=== PATIENT | female | born 1965 | race Hispanic/Latino ===

== ENCOUNTER 2019-03-26 22:41 | Inpatient (IN) | payer OTHER ==
[~2019-03-26] VITALS: Ht 152.4 cm; Wt 90.0 kg
[~2019-03-26 22:41] MED LIST: ATROPINE SULFATE 0.1 MG/ML 10 ML SYG IVP ONE; EPINEPHRINE 0.1 MG/ML 10 ML SYG IVP ONE; ETOMIDATE 2 MG/ML 10 ML VIAL IVP ONE; SODIUM BICARB 8.4% 50ML SYRINGE IVP ONE
[2019-03-26 23:07] LABS: BASOPHILS % (AUTO) 1.4 % (0.0-5.0); EOSINOPHILS % (AUTO) 1.7 % (0.0-8.0); HEMATOCRIT 46.8 % (36-48); LYMPHOCYTES % (AUTO) 45.6 % (21.0-51.0); MEAN CORPUSCULAR HEMOGLOBIN 28.6 pg (27.0-33.0); MEAN CORPUSCULAR HGB CONC 32.1 g/dL (32.0-36.0); MEAN CORPUSCULAR VOLUME 89.1 fL (79-99); MONOCYTES % (AUTO) 4.6 % (3.0-13.0); NEUTROPHILS % (AUTO) 46.7 % (40.0-77.0); PLATELET COUNT (AUTO) 229 K/uL (130-400); RED BLOOD CELL COUNT(AUTO) 5.25 MIL/uL (4.00-5.50); RED CELL DISTRIBUTION WIDTH 14.3 % (11.0-15.5); WHITE BLOOD COUNT (AUTO) 8.7 K/uL (4.8-10.8)
[2019-03-26] MEDS ORDERED: SODIUM CHLORIDE 0.9% 250 ML IV ONE (23:10)
[2019-03-26] MEDS ORDERED: NOREPINEPHRINE BITARTRATE 1 MG/1 ML ML IV ONE (23:10)
[2019-03-26 23:13] LABS: ABG HCO3 15.4 mmol/L (21.0-28.0); ABG OXYGEN SATURATION 96.7 % (95.0-99.0); ABG PCO2 94 mmHg (32-45)
[2019-03-26 23:16] LABS: INR 0.98 (0.85-1.15); PROTHROMBIN TIME 10.3 SEC (9.6-11.6)
[2019-03-26 23:21] LABS: POTASSIUM 3.8 mmol/L (3.5-5.1)
[2019-03-26 23:27] LABS: ALBUMIN 3.2 g/dL (3.5-5.0); BILIRUBIN,TOTAL 0.2 mg/dL (0.2-1.0); TOTAL PROTEIN, SERUM 8.1 g/dL (6.0-8.3)
[2019-03-26] MEDS ORDERED: CLOPIDOGREL BISULFATE 300 MG TAB ONE (23:27)
[2019-03-26] MEDS ORDERED: ASPIRIN 325 MG TABLET ONE (23:27)
[2019-03-26] MEDS ORDERED: HEPARIN SODIUM 5000UNIT/ML 1ML VIAL ONE (23:34)
[2019-03-26 23:41] LABS: APPEARANCE,URINE Clear (CLEAR); BILIRUBIN,URINE Negative (NEGATIVE); COLOR,URINE Yellow (YELLOW); GLUCOSE, URINE (UA) >=1000 mg/dL (NEGATIVE); KETONES,URINE Negative (NEGATIVE); LEUKOCYTE ESTERASE ,URINE Negative (NEGATIVE); NITRATE,URINE Negative (NEGATIVE); OCCULT BLOOD,URINE Moderate (NEGATIVE); PROTEIN,URINE >=1000 mg/dL (NEGATIVE); UROBILINOGEN,URINE 0.2 mg/dL (0.2-1.0)
[2019-03-26 23:43] LABS: HCG,QUAL RESULT NEGATIVE (NEGATIVE)
[2019-03-26] MEDS ORDERED: ONDANSETRON HCL 4 MG/2 ML VIAL IV PRN (23:45)
[2019-03-26] MEDS ORDERED: ACETAMINOPHEN 325 MG TAB PO PRN ×2 (23:45)
[2019-03-26 23:48] LABS: ABG BASE EXCESS -14.5 mmol/L (-2.0-3.0); ABG HCO3 16.2 mmol/L (21.0-28.0); ABG OXYGEN SATURATION 93.3 % (95.0-99.0); ABG PCO2 59 mmHg (32-45)
[2019-03-26 23:49] LABS: AMPHET/METH SCREEN,URINE NEGATIVE (NEGATIVE); BARBITURATE SCREEN, URINE NEGATIVE (NEGATIVE); BENZODIAZEPINES SCREEN,URINE NEGATIVE (NEGATIVE); CANNABINOID SCREEN,URINE NEGATIVE (NEGATIVE); COCAINE SCREEN,URINE NEGATIVE (NEGATIVE); OPIATE SCREEN,URINE NEGATIVE (NEGATIVE); PHENCYCLIDINE SCREEN,URINE NEGATIVE (NEGATIVE)
[2019-03-26 23:56] LABS: BACTERIA,URINE None Seen /HPF (None Seen); SQUAMOUS EPITHELIAL CELL,UR Rare /HPF (0-2); WBC,URINE None Seen /HPF (0-1); YEAST,URINE BUDDING None Seen /HPF (None Seen)
[2019-03-26] MEDS ORDERED: SODIUM BICARB 50MEQ 50ML VIAL ONE (23:56)
[2019-03-26] MEDS ORDERED: INSULIN HUMULIN R 100 UNIT/ML 3ML ONE (23:57)
[2019-03-26] MEDS ORDERED: NITROGLYCERIN 5 MG/ML 10 ML VIAL IV ONE (23:57)
[2019-03-26] MEDS ORDERED: BIVALIRUDIN 250 MG/VIAL IV ONE (23:57)
[2019-03-26] MEDS ORDERED: IOHEXOL 350 MG/ML 100ML INFUS..BTL IV ONE (23:57)
[2019-03-26] MEDS ORDERED: IOHEXOL-350 50ML VIAL IV ONE (23:57)
[2019-03-26] MEDS ORDERED: LIDOCAINE HCL 2% 20ML ONE (23:58)
[2019-03-27] VITALS (68 sets, daily range): BP systolic 0–233; BP diastolic 0–141
[2019-03-27] MEDS ORDERED: ATROPINE SULFATE 0.1 MG/ML 10 ML SYG IVP ONE ×2 (00:20→17:44)
[2019-03-27] MEDS ORDERED: BIVALIRUDIN 250 MG/VIAL IV ONE (00:21)
[2019-03-27] MEDS ORDERED: FUROSEMIDE 10 MG/ML 4ML VIAL ONE (00:31)
[2019-03-27 00:47] LABS: ABG BASE EXCESS -5.4 mmol/L (-2.0-3.0); ABG HCO3 21.4 mmol/L (21.0-28.0); ABG OXYGEN SATURATION 99.2 % (95.0-99.0); ABG PCO2 47 mmHg (32-45)
[2019-03-27] MEDS ORDERED: MORPHINE SULFATE 5 MG/ML VIAL ONE (00:55)
[2019-03-27] MEDS ORDERED: LABETALOL 20 MG/4 ML DISP.SYRIN IV ONE (00:59)
[2019-03-27] MEDS ORDERED: FUROSEMIDE 10 MG/ML 4ML VIAL IV SCH (01:15)
[2019-03-27] MEDS ORDERED: PHARMACY COMMUNICATION MISC SCH ×2 (01:15→11:30)
--- NOTE | 2019-03-27 01:15 | NUR ---
NEW ADMIT 53 Y/O FEMALE ADMITTED TO ROOM 215. PT UNRESPONSIVE, PUPILS FIXED AND DILATED. NO RESPONSE TO PAINFUL STIMULI, (-) COUGH REFLEX. SEE FLOW SHEET FOR ASSESSMENT,AND NURSING DATA BASE FOR MORE INFORMATION.
--- NOTE | 2019-03-27 02:00 | NUR ---
COOLING BLANKET COOLING BLANKET APPLIED
--- NOTE | 2019-03-27 02:15 | NUR ---
BENCHMARK BENCHMARK MADE AWARE OF CONSULT, SEE ORDERS
--- NOTE | 2019-03-27 03:00 | NUR ---
RADIOLOGY PT Taken to ct via bed bagged with RT and monitor at bedside.
[2019-03-27] MEDS: NITROGLYCERIN 50 MG/D5% WATER 250 BOT IV PRN ×3 (03:46→21:25)
[2019-03-27 05:48] LABS: BASOPHILS % (AUTO) 0.2 % (0.0-5.0); EOSINOPHILS % (AUTO) 0.1 % (0.0-8.0); HEMATOCRIT 45.3 % (36-48); LYMPHOCYTES % (AUTO) 7.2 % (21.0-51.0); MEAN CORPUSCULAR HEMOGLOBIN 28.4 pg (27.0-33.0); MONOCYTES % (AUTO) 4.8 % (3.0-13.0); NEUTROPHILS % (AUTO) 87.7 % (40.0-77.0); PLATELET COUNT (AUTO) 221 K/uL (130-400); RED BLOOD CELL COUNT(AUTO) 5.27 MIL/uL (4.00-5.50); RED CELL DISTRIBUTION WIDTH 14.1 % (11.0-15.5); WHITE BLOOD COUNT (AUTO) 17.5 K/uL (4.8-10.8)
[2019-03-27 05:59] LABS: ALBUMIN 3.3 g/dL (3.5-5.0); BILIRUBIN,TOTAL 0.3 mg/dL (0.2-1.0); CREATININE 1.2 mg/dL (0.5-1.5); POTASSIUM 3.5 mmol/L (3.5-5.1); TOTAL PROTEIN, SERUM 7.8 g/dL (6.0-8.3)
[2019-03-27] MEDS ORDERED: DILTIAZEM 125MG+100 ML NS 125 ML IV PRN (06:45)
[2019-03-27] MEDS ORDERED: INSULIN HUMULIN R 100 UNIT/ML 3ML SQ SCH ×2 (07:30→12:00)
--- NOTE | 2019-03-27 08:54 | NUR ---
Sepsis Notification Rainer BUCK/ Karin BUCK notified or aware of possible sepsis. Addendum: 03/27/19 at 0857 by HEIDE MCCALLUM RN Karin BUCK rounded at bedside given report of patients event. No orders received.
[2019-03-27] MEDS: ENOXAPARIN SODIUM 40 MG/0.4 ML SYRINGE SQ SCH (09:00)
[2019-03-27] MEDS: FAMOTIDINE/PF 20 MG/2 ML VIAL IV SCH ×2 (09:09→20:51)
[2019-03-27] MEDS ORDERED: [UNRECOGNIZED DRUG - OTHER] PO (10:11)
[2019-03-27] MEDS ORDERED: [UNRECOGNIZED DRUG - OTHER] PO (10:11)
[2019-03-27] MEDS ORDERED: HYDR25TA PO (10:11)
[2019-03-27] MEDS ORDERED: GLUCOVANCE PO (10:11)
[2019-03-27] MEDS ORDERED: MONT10TA24 PO (10:11)
[2019-03-27] MEDS ORDERED: [UNRECOGNIZED DRUG - OTHER] PO (10:11)
[2019-03-27] MEDS ORDERED: PANT20TA12 PO (10:11)
[2019-03-27] MEDS ORDERED: [UNRECOGNIZED DRUG - OTHER] PO (10:11)
[2019-03-27] MEDS ORDERED: COMPOUND IV MISC 1 EACH IVSOLN MISC PRN (11:45)
[2019-03-27] MEDS: AMLODIPINE BESYLATE 2.5 MG TAB PO SCH ×2 (12:00→20:50)
[2019-03-27] MEDS: LABETALOL HCL 100 MG TABLET PO SCH ×2 (12:01→20:52)
[2019-03-27] MEDS: BUMETANIDE 0.25 MG/ML 10 ML 40 ML IV SCH ×2 (12:03→20:50)
--- NOTE | 2019-03-27 12:06 | NUR ---
Lovenox order Dr. Mcginnis rounded at 1050 updated on patients status. He ordered amlodipine, labetalol, and a Bumex drip as entered in orders. Instructed for Lovenox subq injection to be held due to possible a-line insertion or femoral sheath removal as per critical care order.
[2019-03-27] MEDS: ENOXAPARIN SODIUM 100 MG/1 ML SQ SCH ×2 (13:45→20:55)
[2019-03-27] MEDS: INSULIN REGULAR, HUMAN 3ML 100 UNIT in SODIUM CHLORIDE 0.9% 99 ML IV PRN ×4 (13:49→20:57)
[2019-03-27] MEDS: ZOSYN 3.375GM+NS 50ML 50 ML IV SCH ×2 (14:40→20:51)
[2019-03-27] MEDS: HYDRALAZINE HCL 25 MG TABLET NG SCH ×2 (14:44→20:53)
--- NOTE | 2019-03-27 15:45 | NUR ---
D/C PLAN CM spoke to pts daughter named Minnie regarding d/c planning. States pt lives with spouse. Pt was previously independent and denies having any DME. Plan to home for now depending on progress. Pt is currently vented. Daughter asked CM about pts sister visiting from [place]. CM to refer case to licensed social worker for a possible contact for family. CM to f/u. Addendum: 03/27/19 at 1549 by RODRIGO CUADRA CM Amended: Links added.
--- NOTE | 2019-03-27 19:00 | NUR ---
ASSESSMENT PT INTUBATED, COOLING BLANKET INTACT. IV FLUIDS INFUSING. PT REMAINS UNRESPONSIVE. FAMILY AT BEDSIDE. FOR MORE INFORMATION SEE ASSESSMENT. BEDSIDE MONITOR REVIEWED, WHITE BOARD UP-DATED AND CALLBELL WITHIN REACH.
[2019-03-28] VITALS (53 sets, daily range): BP systolic 117–184; BP diastolic 53–87
--- NOTE | 2019-03-28 02:00 | NUR ---
COOLING BLANKET COOLING BLANKET COMPLETED
--- NOTE | 2019-03-28 03:00 | NUR ---
ASSESSMENT PT REMAINS INTUBATED, IV FLUIDS INFUSING. PT REMAINS UNRESPONSIVE, PUPILS FIXED AND DILATED, (-) COUGH (-) RESPONSE TO PAIN. FAMILY AT BEDSIDE. FOR MORE INFORMATION SEE ASSESSMENT. CALLBELL WITHIN REACH.
[2019-03-28] MEDS: ZOSYN 3.375GM+NS 50ML 50 ML IV SCH ×3 (04:12→21:08)
[2019-03-28 04:29] LABS: ALBUMIN 2.9 g/dL (3.5-5.0); BILIRUBIN,TOTAL 0.5 mg/dL (0.2-1.0); MAGNESIUM 1.5 mg/dL (1.80-2.40); PHOSPHORUS 2.4 mg/dL (2.5-4.9); TOTAL PROTEIN, SERUM 7.7 g/dL (6.0-8.3)
[2019-03-28 04:41] LABS: BASOPHILS % (AUTO) 1.1 % (0.0-5.0); EOSINOPHILS % (AUTO) 0.1 % (0.0-8.0); MEAN CORPUSCULAR HEMOGLOBIN 27.8 pg (27.0-33.0); MEAN CORPUSCULAR HGB CONC 32.6 g/dL (32.0-36.0); MEAN CORPUSCULAR VOLUME 85.3 fL (79-99); NEUTROPHILS % (AUTO) 88.8 % (40.0-77.0); NUCLEATED RED BLOOD CELLS 0.1 % (0.0-0.19); PLATELET COUNT (AUTO) 190 K/uL (130-400); RED BLOOD CELL COUNT(AUTO) 5.04 MIL/uL (4.00-5.50); RED CELL DISTRIBUTION WIDTH 13.7 % (11.0-15.5); WHITE BLOOD COUNT (AUTO) 17.1 K/uL (4.8-10.8)
[2019-03-28 05:00] LABS: POTASSIUM 2.9 mmol/L (3.5-5.1)
[2019-03-28] MEDS ORDERED: MAGNESIUM 2GM PREMIX 50ML 50 ML IV PRN (07:15)
[2019-03-28] MEDS: POTASSIUM CHLORIDE 20MEQ/100ML 100 ML IV PRN ×2 (07:52→11:23)
--- NOTE | 2019-03-28 07:54 | NUR ---
Electrolyte replacement Magnesium 1.5, 1 dose given as per protocol Potassium 2.9, 1 dose given pending second dose once first in completed as per protocol Addendum: 03/28/19 at 1123 by HEIDE MCCALLUM RN 2nd dose of potassium given as per protocol at 1123
[2019-03-28] MEDS: ENOXAPARIN SODIUM 40 MG/0.4 ML SYRINGE SQ SCH (09:00)
[2019-03-28] MEDS: HYDRALAZINE HCL 25 MG TABLET NG SCH ×3 (09:24→21:13)
[2019-03-28] MEDS: LABETALOL HCL 100 MG TABLET PO SCH ×2 (09:24→21:10)
[2019-03-28] MEDS: FAMOTIDINE/PF 20 MG/2 ML VIAL IV SCH ×2 (09:24→21:11)
[2019-03-28] MEDS: AMLODIPINE BESYLATE 2.5 MG TAB PO SCH (09:25)
[2019-03-28] MEDS: ENOXAPARIN SODIUM 100 MG/1 ML SQ SCH ×2 (09:25→20:00)
[2019-03-28] MEDS: ASPIRIN 81MG TAB.CHEW NG SCH (09:25)
[2019-03-28 10:16] LABS: ABG BASE EXCESS 4.7 mmol/L (-2.0-3.0); ABG HCO3 26.4 mmol/L (21.0-28.0); ABG OXYGEN SATURATION 98.1 % (95.0-99.0); ABG PCO2 31 mmHg (32-45)
--- NOTE | 2019-03-28 11:33 | NUR ---
RD NOTIFICATION - TRIGGER Pt admitted for Cardiac Arrest. Pt s/p Respiratory failure, Intubation, mechanical ventilation. Pt also with Small bowel loops as per EMR, NGT to suction. Recommend to continue NPO at this time, RD to continue to monitor. Pt LBM 03/27/19. Pt monitored labs: Glu 179, Lactic Acid 2.9, Na 147, K 2.9, BUN 31, Glu 162, P 2.4, Mg 1.50, AST 166, Alb 2.9. RD to continue to monitor. Please notify RD as additional nutrition concerns arise. Thank you. Addendum: 03/28/19 at [address] RD Amended: Links added.
[2019-03-28] MEDS ORDERED: INSULIN GLARGINE 100 UNITS/ML 10 ML VIAL SQ SCH (12:15)
[2019-03-28] MEDS ORDERED: 1/2 NORMAL SALINE 1,000 ML IV SCH (13:30)
[2019-03-28] MEDS: LISINOPRIL 10 MG TABLET PO SCH (13:37)
[2019-03-28] MEDS ORDERED: IOHEXOL 350 MG/ML 100ML INFUS..BTL IV ONE (15:16)
--- NOTE | 2019-03-28 16:00 | NUR ---
CT SCAN Patient transported to CT scan at 1530 and returned back to the room at 1600. RN and RT transported the patient, scan went well. Addendum: 03/28/19 at 1835 by HEIDE MCCALLUM RN Dr. Casey notified by phone about the CT results, Ordered for lovenox dose to be adjusted to 40mg daily
[2019-03-28] MEDS ORDERED: INSULIN HUMULIN R 100 UNIT/ML 3ML SQ SCH (18:00)
[2019-03-28] MEDS: INSULIN HUMULIN R 100 UNIT/ML 3ML SQ SCH (18:27)
--- NOTE | 2019-03-28 19:30 | NUR ---
ASSESSMENT PT INTUBATED, IV FLUIDS INFUSING. PT REMAINS UNRESPONSIVE. FAMILY AT BEDSIDE. FOR MORE INFORMATION SEE ASSESSMENT, SEE FLOW SHEET. BEDSIDE MONITOR REVIEWED, WHITE BOARD UP-DATED AND CALLBELL WITHIN REACH.
[2019-03-28] MEDS ORDERED: AMLODIPINE BESYLATE 2.5 MG TAB PO SCH (21:00)
[2019-03-28] MEDS: NITROGLYCERIN 50 MG/D5% WATER 250 BOT IV PRN (21:08)
[2019-03-28] MEDS: AMLODIPINE BESYLATE 5 MG TAB PO SCH (21:10)
[2019-03-29] VITALS (44 sets, daily range): BP systolic 110–146; BP diastolic 54–96
[2019-03-29] MEDS: INSULIN HUMULIN R 100 UNIT/ML 3ML SQ SCH ×4 (00:51→17:39)
[2019-03-29 03:53] LABS: BASOPHILS % (AUTO) 0.1 % (0.0-5.0); EOSINOPHILS % (AUTO) 0.1 % (0.0-8.0); HEMATOCRIT 39.8 % (36-48); LYMPHOCYTES % (AUTO) 8.8 % (21.0-51.0); MEAN CORPUSCULAR HEMOGLOBIN 28.2 pg (27.0-33.0); MEAN CORPUSCULAR HGB CONC 32.8 g/dL (32.0-36.0); MEAN CORPUSCULAR VOLUME 85.8 fL (79-99); MONOCYTES % (AUTO) 8.5 % (3.0-13.0); NEUTROPHILS % (AUTO) 82.5 % (40.0-77.0); PLATELET COUNT (AUTO) 192 K/uL (130-400); RED BLOOD CELL COUNT(AUTO) 4.64 MIL/uL (4.00-5.50); RED CELL DISTRIBUTION WIDTH 14.2 % (11.0-15.5)
[2019-03-29 04:13] LABS: ALBUMIN 2.5 g/dL (3.5-5.0); BILIRUBIN,TOTAL 0.4 mg/dL (0.2-1.0); CREATININE 1.2 mg/dL (0.5-1.5); MAGNESIUM 3.4 mg/dL (1.80-2.40); PHOSPHORUS 5.2 mg/dL (2.5-4.9); POTASSIUM 3.1 mmol/L (3.5-5.1); TOTAL PROTEIN, SERUM 6.9 g/dL (6.0-8.3)
[2019-03-29] MEDS: ZOSYN 3.375GM+NS 50ML 50 ML IV SCH ×3 (05:39→21:01)
--- NOTE | 2019-03-29 07:35 | NUR ---
DR. GASTELUM WAS PAGED AND ADVISED OF CONSULT FOR PATIENT.
[2019-03-29] MEDS: LISINOPRIL 10 MG TABLET PO SCH (08:06)
[2019-03-29] MEDS: AMLODIPINE BESYLATE 5 MG TAB PO SCH ×2 (08:06→21:02)
[2019-03-29] MEDS: ENOXAPARIN SODIUM 40 MG/0.4 ML SYRINGE SQ SCH (08:07)
[2019-03-29] MEDS: POTASSIUM CHLORIDE 20MEQ/100ML 100 ML IV PRN (08:08)
[2019-03-29] MEDS: ASPIRIN 81MG TAB.CHEW NG SCH (08:08)
[2019-03-29] MEDS: FAMOTIDINE/PF 20 MG/2 ML VIAL IV SCH ×2 (08:08→21:01)
[2019-03-29] MEDS: LABETALOL HCL 100 MG TABLET PO SCH ×2 (08:09→21:02)
[2019-03-29] MEDS: INSULIN GLARGINE 100 UNITS/ML 10 ML VIAL SQ SCH (08:32)
[2019-03-29] MEDS: HYDRALAZINE HCL 25 MG TABLET NG SCH ×3 (08:52→21:02)
--- NOTE | 2019-03-29 10:30 | NUR ---
DR. GASTELUM HERE AND SPOKE WITH AND DAUGHTER AND ADVISED THEM OF THE CT SCAN REPORT AND HIS NEUROLOGICAL ASSESSMENT AND THE POOR PROGNOSIS. FAMILY MEMBERS WERE ALLOWED TO ASK QUESTIONS AND DR. GASTELUM ANSWERED THEIR QUESTIONS TO THEIR SATISFACTION.
--- NOTE | 2019-03-29 11:35 | NUR ---
[facility] WAS CALLED AND NOTIFIED OF PT'S PRESENT STATUS. SPOKE WITH KESHA FAUSTIN AND REFERENCE NUMBER OBTAINED.
[2019-03-29] MEDS ORDERED: MAGNESIUM 2GM PREMIX 50ML 50 ML IV PRN (14:00)
[2019-03-29] MEDS ORDERED: POTASSIUM CHLORIDE 20MEQ/100ML 100 ML IV PRN (14:00)
[2019-03-29] MEDS: SODIUM CHLORIDE 0.9% 1000ML 1,000 ML IV SCH (14:00)
--- NOTE | 2019-03-29 15:04 | NUR ---
DC PLAN READ DR. GASTELUM NOTES. PATIENT APPEARS TO BE BRAIN . LET FIREBRICK LAYER KNOW TO START SPEAKING TO FAMILY REGARDING WITHDRAWL PROCESS. Addendum: 03/29/19 at 1506 by SCOT SHELLEY RN CM Amended: Links added.
--- NOTE | 2019-03-29 15:30 | NUR ---
DR. MCCULLOUGH WAS HERE AND SPOKE WITH PATIENT'S FAMILY MEMBERS AND ADVISED THEM OF THE PROGNOSIS NOT BEING A GOOD PROGNOSIS. DAUGHTER STILL HOPEFUL FOR A MIRACLE.
--- NOTE | 2019-03-29 20:00 | NUR ---
ASSESSMENT REMAINS ON VENT WITH ORDERED SETTINGS. NO SEDATION. ASSESSMENT COMPLETED SEE FLOW SHEET. Addendum: 03/29/19 at 2020 by CUBA WARD RN RN Amended: Links added.
[2019-03-30] VITALS (24 sets, daily range): BP systolic 108–147; BP diastolic 48–74
[2019-03-30] MEDS: INSULIN HUMULIN R 100 UNIT/ML 3ML SQ SCH ×3 (00:44→12:00)
[2019-03-30 03:37] LABS: BASOPHILS % (AUTO) 0.1 % (0.0-5.0); HEMATOCRIT 36.4 % (36-48); LYMPHOCYTES % (AUTO) 10.9 % (21.0-51.0); MEAN CORPUSCULAR HEMOGLOBIN 28.4 pg (27.0-33.0); MEAN CORPUSCULAR HGB CONC 32.8 g/dL (32.0-36.0); MEAN CORPUSCULAR VOLUME 86.5 fL (79-99); PLATELET COUNT (AUTO) 163 K/uL (130-400); RED BLOOD CELL COUNT(AUTO) 4.21 MIL/uL (4.00-5.50); RED CELL DISTRIBUTION WIDTH 14.2 % (11.0-15.5); WHITE BLOOD COUNT (AUTO) 10.9 K/uL (4.8-10.8)
[2019-03-30 03:59] LABS: CREATININE 1.4 mg/dL (0.5-1.5); MAGNESIUM 2.1 mg/dL (1.80-2.40)
[2019-03-30 04:02] LABS: POTASSIUM 2.6 mmol/L (3.5-5.1)
[2019-03-30] MEDS: POTASSIUM CHLORIDE 20MEQ/100ML 100 ML IV PRN ×4 (04:09→22:03)
[2019-03-30] MEDS: LIDOCAINE HCL-MPF 1% 2ML VIAL IV PRN ×2 (04:09→19:32)
[2019-03-30] MEDS: ZOSYN 3.375GM+NS 50ML 50 ML IV SCH ×3 (04:59→21:06)
[2019-03-30] MEDS: ENOXAPARIN SODIUM 40 MG/0.4 ML SYRINGE SQ SCH (08:22)
[2019-03-30] MEDS: LABETALOL HCL 100 MG TABLET PO SCH ×2 (08:22→21:06)
[2019-03-30] MEDS: HYDRALAZINE HCL 25 MG TABLET NG SCH ×3 (08:23→21:18)
[2019-03-30] MEDS: FAMOTIDINE/PF 20 MG/2 ML VIAL IV SCH ×2 (08:23→21:06)
[2019-03-30] MEDS: ASPIRIN 81MG TAB.CHEW NG SCH (08:24)
[2019-03-30] MEDS: AMLODIPINE BESYLATE 5 MG TAB PO SCH ×2 (08:24→21:06)
[2019-03-30] MEDS: INSULIN GLARGINE 100 UNITS/ML 10 ML VIAL SQ SCH (08:26)
[2019-03-30] MEDS: LISINOPRIL 10 MG TABLET PO SCH (08:27)
--- NOTE | 2019-03-30 09:06 | NUR ---
EMOTIONAL SUPPORT Damion met with pt's son at bedside. Per son, family waiting to talk to Dr Metcalf this am for status on pt. Son reports that family was spoke to by Dr Metcalf and Dr Gates and news was not good, but Dr Figueroa spoke to them in afternoon and now they have hope that brain is receiving blood flow and pt may recover. Family has strong marcell that God will heal pt. Daughter arrived and was requesting letter for family to come from [place]. Sw referred daughter to MD office for letter.
[2019-03-30] MEDS: SODIUM CHLORIDE 0.9% 1000ML 1,000 ML IV SCH ×2 (10:00→23:38)
--- NOTE | 2019-03-30 14:24 | NUR ---
RD FOLLOW UP Pt NPO >3 days, NGT to suction; Recommend Altered Means Nutrition. TPN Recommendation: Clinimix 5/15 @75mls/hr. Also recommend 20% Intralipid infusion MWF. Recommend Lipid lab draw, weekly. TPN recommendations placed in Pt chart. Pt with Anoxic encephalopathy, CHF, Pulmonary edema as per EMR. Pending Neuro Eval as per EMR. PT LBM 03/27/19. Pt monitored labs: Na 150, K 2.6, BUN 41, GFR 42, Glu 251, Ca 8.4, Alb 2.5. RD to continue to monitor. Please notify RD as additional nutrition concerns arise. Thank you. Addendum: 03/30/19 at [address] Amended: Links added.
[2019-03-30 19:16] LABS: CREATININE 1.3 mg/dL (0.5-1.5)
[2019-03-30 19:24] LABS: POTASSIUM 2.6 mmol/L (3.5-5.1)
--- NOTE | 2019-03-30 20:06 | NUR ---
ASSESSMENT REMAINS ON VENT WITH ORDERED SETTINGS AND NO SEDATION. ASSESSMENT COMPLETED SEE FLOW SHEET. Addendum: 03/30/19 at 2007 by CUBA WARD RN RN Amended: Links added.
--- NOTE | 2019-03-30 22:29 | NUR ---
NEUROSURGERY SPINE PHYSICIAN VISIT VISITED WITH DAUGHTER AT BEDSIDE.
[2019-03-31] VITALS (27 sets, daily range): BP systolic 84–144; BP diastolic 40–73
[2019-03-31] MEDS: INSULIN HUMULIN R 100 UNIT/ML 3ML SQ SCH ×4 (01:12→18:10)
[2019-03-31] MEDS: ZOSYN 3.375GM+NS 50ML 50 ML IV SCH ×3 (05:05→20:24)
--- NOTE | 2019-03-31 08:00 | NUR ---
PATIENT RECEIVED IN BED, NO CHANGE IN CONDITION. PATIENT REMAINS ON VENTILATOR ON THE FOLLOWING SETTINGS: AC/14/500/5/50%; 7.0 ETT 23 AT THE LIP. PT WITH NO GAG REFLEX NOTED, PUPILS FIXED AND DILATED, NO PAINFUL STIMULI NOTED. HOB ELEVATED, F/C NOTED, DRAINING TO GRAVITY. FAMILY IS AT BEDSIDE. TELE WITH SB 50s. ASSESSMENT DOCUMENTED. WILL CONT TO MONITOR CLOSELY. PATIENT REMAINS FULL CODE STATUS.
[2019-03-31] MEDS: POTASSIUM CHLORIDE 20MEQ/100ML 100 ML IV PRN ×2 (08:28→10:13)
[2019-03-31] MEDS: ENOXAPARIN SODIUM 40 MG/0.4 ML SYRINGE SQ SCH (09:05)
[2019-03-31] MEDS: FAMOTIDINE/PF 20 MG/2 ML VIAL IV SCH ×2 (09:05→20:24)
[2019-03-31] MEDS: ASPIRIN 81MG TAB.CHEW NG SCH (09:05)
[2019-03-31] MEDS: INSULIN GLARGINE 100 UNITS/ML 10 ML VIAL SQ SCH (09:06)
[2019-03-31] MEDS: LISINOPRIL 10 MG TABLET PO SCH (09:09)
[2019-03-31] MEDS: HYDRALAZINE HCL 25 MG TABLET NG SCH ×3 (09:10→20:16)
[2019-03-31] MEDS: LABETALOL HCL 100 MG TABLET PO SCH ×2 (09:10→20:17)
[2019-03-31] MEDS: AMLODIPINE BESYLATE 5 MG TAB PO SCH ×2 (09:10→20:17)
--- NOTE | 2019-03-31 10:51 | NUR ---
PATIENT VISITED BY .
--- NOTE | 2019-03-31 11:45 | NUR ---
MD ROUNDS DR. SMITH ON TO SEE PATIENT. MD SPOKE WITH FAMILY AND INFORMED THEM OF POOR PROGNOSIS. NEW ORDERS FOR BRAIN FLOW STUDY TO BE DONE. WILL CONT TO MONITOR.
--- NOTE | 2019-03-31 11:58 | NUR ---
ROUNDS DR. MOORE IN TO SEE PATIENT. SPOKE WITH DR. SMITH AND THEN SPOKE WITH FAMILY. PATIENT IS TO HAVE A BRAIN FLOW STUDY.
[2019-03-31 14:47] LABS: CREATININE 2.6 mg/dL (0.5-1.5); MAGNESIUM 2.3 mg/dL (1.80-2.40); POTASSIUM 4.2 mmol/L (3.5-5.1)
--- NOTE | 2019-03-31 15:55 | NUR ---
BRAIN FLOW TEST COMPLETE WITH RESULTS AVAILABLE. DR. MOORE, DR. SMITH AND DR. GASTELUM ALL MADE AWARE OF RESULTS. I INFORMED DR. MOORE OF [facility] COMING IN TODAY.
--- NOTE | 2019-03-31 18:25 | NUR ---
SPOKE WITH DR. MOORE REGARDING LOW BP,84/40, HR 55. I ALSO INFORMED HIM RE[facility] IS HERE. NEW ORDERS RECEIVED FOR LEVOPHED KEEP MAP >65. ORDERS TO BE CARRIED OUT.
[2019-03-31] MEDS: NOREPINEPHRINE 4MG/NS 250ML 250 ML IV SCH (18:44)
--- NOTE | 2019-03-31 20:20 | NUR ---
DR. TERESA MOORE AT BEDSIDE HAD FAMILY STEP OUT FOR EXAM.
--- NOTE | 2019-03-31 20:50 | NUR ---
DR. TERESA MOORE CALLED MESSAGE LEFT THAT ALL SUPPLIES ARE AT BEDSIDE WAITING FOR CALL BACK.
--- NOTE | 2019-03-31 21:12 | NUR ---
DR. MOORE MESSAGE SENT TO DR. MOORE AGAIN AT THIS TIME.
--- NOTE | 2019-03-31 21:40 | NUR ---
FAMILY NO RESPONSE FROM DR. MOORE PT AND DAUGHTER LEFT HOME. PTS SISTER AT BEDSIDE
--- NOTE | 2019-03-31 22:10 | NUR ---
RE[facility] STALEY TEAM LEFT AT THIS TIME.
[2019-04-01] VITALS (33 sets, daily range): BP systolic 85–122; BP diastolic 47–67
[2019-04-01] MEDS: INSULIN HUMULIN R 100 UNIT/ML 3ML SQ SCH ×3 (00:16→12:22)
[2019-04-01] MEDS ORDERED: DEXTROSE 5%-WATER 1,000 ML IV ONE (00:39)
[2019-04-01] MEDS: SODIUM CHLORIDE 0.9% 1000ML 1,000 ML IV SCH (02:00)
[2019-04-01 03:56] LABS: HEMATOCRIT 39.1 % (36-48); MEAN CORPUSCULAR HEMOGLOBIN 28.1 pg (27.0-33.0); MEAN CORPUSCULAR HGB CONC 32.3 g/dL (32.0-36.0); MEAN CORPUSCULAR VOLUME 86.9 fL (79-99); PLATELET COUNT (AUTO) 174 K/uL (130-400); RED CELL DISTRIBUTION WIDTH 14.4 % (11.0-15.5)
[2019-04-01] MEDS: ZOSYN 3.375GM+NS 50ML 50 ML IV SCH ×2 (04:04→12:22)
[2019-04-01 04:11] LABS: CREATININE 2.5 mg/dL (0.5-1.5); MAGNESIUM 2.2 mg/dL (1.80-2.40); PHOSPHORUS 2.1 mg/dL (2.5-4.9)
[2019-04-01] MEDS: HYDRALAZINE HCL 25 MG TABLET NG SCH ×2 (07:33→14:00)
[2019-04-01] MEDS: LISINOPRIL 10 MG TABLET PO SCH (07:33)
[2019-04-01] MEDS: AMLODIPINE BESYLATE 5 MG TAB PO SCH (07:33)
[2019-04-01] MEDS: LABETALOL HCL 100 MG TABLET PO SCH (07:33)
--- NOTE | 2019-04-01 07:43 | NUR ---
PATIENT RECEIVED IN BED, NO CHANGE IN NEURO STATUS. CONTINUES ON VENTILATOR ON THE FOLLOWING SETTINGS: AC/12/500/5/50%, 7.0 ETT 23 @ LIP WITH SATURATIONS AT 100%. LEVOPHED @ 5MCG/MIN (18.75ML) WITH MAP >65. LEROY CATHETER WITH CLEAR YELLOW URINE DRAINING TO GRAVITY. HOB ELEVATED 45 DEGREES AND NGT TO RIGHT NARE TO LOW INTERMITTENT SUCTION. TELE SR 7. WILL CONT TO MONITOR CLOSELY.
[2019-04-01] MEDS: NOREPINEPHRINE 4MG/NS 250ML 250 ML IV SCH (08:06)
[2019-04-01] MEDS: FAMOTIDINE/PF 20 MG/2 ML VIAL IV SCH (09:04)
[2019-04-01] MEDS: ASPIRIN 81MG TAB.CHEW NG SCH (09:04)
[2019-04-01] MEDS: ENOXAPARIN SODIUM 40 MG/0.4 ML SYRINGE SQ SCH (09:05)
[2019-04-01] MEDS: INSULIN GLARGINE 100 UNITS/ML 10 ML VIAL SQ SCH (09:26)
--- NOTE | 2019-04-01 10:30 | NUR ---
ROUNDS DR. GASTELUM IN TO SEE PATIENT AND SPEAK WITH FAMILY. HE INFORMED THEM OF CBF STUDY RESULTS. PERFORMED CLINICAL ASSESSMENT OF BRAIN , WITH TIME OF 10:15. DR. MOORE MADE AWARE THAT DR. GASTELUM WAS HERE. MD ARRIVED AND SPOKE TO DR. GASTELUM AND FAMILY. FAMILY STATES THEY ARE WAITING TO SPEAK WITH DR. SMITH. WILL CONT TO MONITOR.
--- NOTE | 2019-04-01 10:50 | NUR ---
EMOTIONAL SUPPORT SW present when Dr Metcalf and Dr Avalos spoke to family and informed them of brain . Sw provided emotional support Sw present during [facility] conversation with family. Family reports that pt was always very generous to strangers and neighbors. , son, sister are all in agreement that donation would have been what pt wanted. Daughter asking for time.
--- NOTE | 2019-04-01 13:36 | NUR ---
RD NOTIFICATION/ FOLLOW UP DIET: NPO. PENDING CEREBRAL BLOOD FLOW TEST RESULTS. PT WITH POOR PROGNOSIS PER MD. DX: ANOXIC ENCEPHALOPATHY, CHF, PULMONARY EDEMA. UNABLE TO START TPN ORDER AT THIS TIME. PLEASE NOTIFY RD IF ANY CHANGES OCCUR. THANK YOU. MEDS: HUMULIN R, LANTUS, NORVASC, PIPERACILLIN, APRESOLINE, TRANDATE, LOVENOX LABS: WBC 12, Na 157, BUN 53, CRE 2.5, GFR 21, ALB 2.5, PHOS 2.1 Addendum: 04/01/19 at [address] RD Amended: Links added.
--- NOTE | 2019-04-01 14:16 | NUR ---
ROUNDS DR. SMITH IN TO SEE PATIENT. MD UPDATED ON STATUS. AT THIS TIME [facility] PEDIATRICIAN IS SPEAKING WITH FAMILY. MD INSTRUCTED TO NOTIFY HIM WHEN FAMILY MAKES A DECISION.
--- NOTE | 2019-04-01 17:02 | NUR ---
FAMILY CONSENT FOR DONATION Per Rodolfo Lauren, all family in agreement to donate and consents were signed. [facility] team now to begin process. SW notified CMD, and Areli Rosado of admission to [facility].
--- NOTE | 2019-04-01 18:10 | NUR ---
DC PLAN PATIENT CHANGED TO ORGAN DONOR. Addendum: 04/01/19 at 1811 by SCOT SHELLEY RN CM Amended: Links added.
== END 2019-04-02 10:15 | disposition expired | DRG 207 ==
LOC: EDH 22:41 → EDHIP 22:42 → 2CH 03-27 01:32 → UNDODISIN 04-01 14:34
PROVIDERS: ADMIT Hospitalist; ATTEND Hospitalist
PROC: 5A12012 Performance of Cardiac Output, Single, Manual (ICD-10-PCS; 2019-03-26)
PROC: 5A1955Z Respiratory Ventilation, Greater than 96 Consecutive Hours (ICD-10-PCS; principal; 2019-03-27)
PROC: 4A023N7 Measurement of Cardiac Sampling and Pressure, Left Heart, Percutaneous Approach (ICD-10-PCS; 2019-03-27)
PROC: B2111ZZ Fluoroscopy of Multiple Coronary Arteries using Low Osmolar Contrast (ICD-10-PCS; 2019-03-27)
PROC: B41F1ZZ Fluoroscopy of Right Lower Extremity Arteries using Low Osmolar Contrast (ICD-10-PCS; 2019-03-27)
PROC: 0BH17EZ Insertion of Endotracheal Airway into Trachea, Via Natural or Artificial Opening (ICD-10-PCS; 2019-03-27)
DX: J96.01 Acute respiratory failure with hypoxia (principal); G93.6 Cerebral edema; J69.0 Pneumonitis due to inhalation of food and vomit; I50.43 Acute on chronic combined systolic (congestive) and diastolic (congestive) heart failure; E87.0 Hyperosmolality and hypernatremia; G93.1 Anoxic brain damage, not elsewhere classified; I42.8 Other cardiomyopathies; I11.0 Hypertensive heart disease with heart failure; J96.02 Acute respiratory failure with hypercapnia; I46.9 Cardiac arrest, cause unspecified; I49.01 Ventricular fibrillation; J45.909 Unspecified asthma, uncomplicated; E11.9 Type 2 diabetes mellitus without complications; E66.01 Morbid (severe) obesity due to excess calories; I25.10 Atherosclerotic heart disease of native coronary artery without angina pectoris; I48.0 Paroxysmal atrial fibrillation; Z68.38 Body mass index [BMI] 38.0-38.9, adult; Z79.899 Other long term (current) drug therapy
CPT/HCPCS: 31500; 36415; 36600; 70450; 71045; 71275; 74018; 74176; 78610; 80048; 80053; 80305; 81001; 81025; 82140; 82435; 82550; 82803; 82947; 82948; 83605; 83735; 83880; 84100; 84132; 84295; 84484; 85018; 85025; 85027; 85347; 85610; 85730; 87040; 87071; 87077; 87088; 87186; 87205; 92950; 93005; 93306; 93458; 94002; 94003; 99291; A9512; C1760; C1894; G0378; J0171; J0461; J0583; J1644; J1650; J1815; J1940; J2270; J2405; J2543; J3475; J3480; J3490; J7030; J7070; Q9967

== ENCOUNTER 2019-04-01 14:35 | Inpatient (IN) | payer OTHER ==
[2019-04-01] VITALS (21 sets, daily range): BP systolic 88–172; BP diastolic 45–70
[~2019-04-01] VITALS: Ht 152.4 cm; Wt 90.3 kg
[~2019-04-01 14:35] MED LIST changes: -ATROPINE SULFATE 0.1 MG/ML 10 ML SYG IVP ONE; -EPINEPHRINE 0.1 MG/ML 10 ML SYG IVP ONE; -ETOMIDATE 2 MG/ML 10 ML VIAL IVP ONE; +GLUCOVANCE PO; +HYDR25TA PO; +MONT10TA24 PO; +PANT20TA12 PO; -SODIUM BICARB 8.4% 50ML SYRINGE IVP ONE; +[UNRECOGNIZED DRUG - OTHER] PO; +[UNRECOGNIZED DRUG - OTHER] PO; +[UNRECOGNIZED DRUG - OTHER] PO; +[UNRECOGNIZED DRUG - OTHER] PO
[2019-04-01] MEDS ORDERED: SODIUM CHLORIDE 0.9% 500ML 500 ML IV ONE ×2 (17:13→20:34)
[2019-04-01] MEDS ORDERED: INSULIN HUMULIN R 100 UNIT/ML 3ML IV ONE ×2 (18:00→23:45)
[2019-04-01] MEDS: HYDROCORTISONE SOD SUCCINATE 100 MG/2 ML VIAL IV SCH (18:15)
[2019-04-01] MEDS ORDERED: PHARMACY COMMUNICATION MISC SCH ×3 (18:15→18:30)
[2019-04-01] MEDS ORDERED: INSULIN REGULAR, HUMAN 3ML 100 UNIT in SODIUM CHLORIDE 0.9% 99 ML IV PRN ×2 (18:15)
[2019-04-01] MEDS ORDERED: DOPAMINE 800MG/D5 250ML 250 ML IV PRN (18:15)
[2019-04-01] MEDS ORDERED: HYDROCORTISONE SOD SUCCINATE 100 MG/2 ML VIAL IV SCH (18:15)
[2019-04-01] MEDS ORDERED: VANCOMYCIN 1GM+NS 250ML 250 ML IV SCH (18:15)
[2019-04-01] MEDS ORDERED: SODIUM CHLORIDE 0.9% IVP PRN (18:45)
[2019-04-01] MEDS ORDERED: VASOPRESSIN IVP PRN (18:45)
[2019-04-01 19:17] LABS: APPEARANCE,URINE Cloudy (CLEAR); BILIRUBIN,URINE Negative (NEGATIVE); COLOR,URINE Yellow (YELLOW); GLUCOSE, URINE (UA) Negative (NEGATIVE); KETONES,URINE Negative (NEGATIVE); LEUKOCYTE ESTERASE ,URINE Moderate (NEGATIVE); NITRATE,URINE Negative (NEGATIVE); OCCULT BLOOD,URINE Large (NEGATIVE); PH,URINE 5.5 (5.0-8.0); PROTEIN,URINE POS 1+ mg/dL (NEGATIVE)
[2019-04-01 19:34] LABS: HEMATOCRIT 37.7 % (36-48); MEAN CORPUSCULAR HEMOGLOBIN 28.1 pg (27.0-33.0); MEAN CORPUSCULAR HGB CONC 32.3 g/dL (32.0-36.0); MEAN CORPUSCULAR VOLUME 87.2 fL (79-99); NUCLEATED RED BLOOD CELLS 0.1 % (0.0-0.19); PLATELET COUNT (AUTO) 176 K/uL (130-400); RED BLOOD CELL COUNT(AUTO) 4.33 MIL/uL (4.00-5.50); RED CELL DISTRIBUTION WIDTH 14.6 % (11.0-15.5); WHITE BLOOD COUNT (AUTO) 11.1 K/uL (4.8-10.8)
[2019-04-01] MEDS: [UNRECOGNIZED DRUG - OTHER] IV SCH (19:35)
[2019-04-01] MEDS: POTASSIUM CHLORIDE IV SCH (19:35)
[2019-04-01] MEDS: SODIUM CHLORIDE IV SCH (19:35)
[2019-04-01 19:36] LABS: BACTERIA,URINE Moderate /HPF (None Seen); MUCUS,URINE Moderate LPF (None Seen)
[2019-04-01] MEDS ORDERED: LEVOTHYROXINE 100 MCG IV ONE (19:41)
--- NOTE | 2019-04-01 19:45 | NUR ---
PATIENT UNDER CARE OF REBEKA. DR. SMITH PERFORMED BRONCHOSCOPY AT BEDSIDE WITH SEND OUT LABS FOR RIGHT AND LEFT BAL WITH GRAM STAIN. HE INSERTED TRIPLE LUMEN CVC TO RIGHT IJ AND ARTERIAL LINE TO RIGHT FEMORAL.
[2019-04-01 19:46] LABS: INR 1.04 (0.85-1.15); PARTIAL THROMBOPLASTIN TIME 34.4 SEC (26.3-35.5); PROTHROMBIN TIME 10.9 SEC (9.6-11.6)
[2019-04-01] MEDS: SODIUM CHLORIDE 0.9% IV SCH (19:49)
[2019-04-01] MEDS: LEVOTHYROXINE IV SCH (19:49)
[2019-04-01 19:57] LABS: HEMOGLOBIN A1C 10.4 % (4.0-6.0)
[2019-04-01] MEDS ORDERED: 1/2 NORMAL SALINE 1,000 ML IV ONE (20:18)
[2019-04-01 20:19] LABS: ALANINE AMINOTRANSFERASE 90 U/L (12-78); ALBUMIN 1.7 g/dL (3.5-5.0); AMYLASE 32 U/L (25-115); ASPARTATE AMINOTRANSFERASE 153 U/L (10-37); BILIRUBIN,DIRECT 0.1 mg/dL (0.0-0.3); BILIRUBIN,TOTAL 0.5 mg/dL (0.2-1.0); CARBON DIOXIDE 24 mmol/L (21-32); CREATININE 2.2 mg/dL (0.5-1.5); GLOMERULAR FILTR. RATE CALC 25 mL/min (>60); GLUCOSE,RANDOM 196 mg/dL (70-105); LIPASE 317 U/L (114-286); MYOGLOBIN 4927 ng/mL (10-92); PHOSPHORUS 2.2 mg/dL (2.5-4.9); POTASSIUM 3.2 mmol/L (3.5-5.1); TOTAL PROTEIN, SERUM 6.7 g/dL (6.0-8.3); TROPONIN I 0.16 ng/mL (0.00-0.06); UREA NITROGEN, BLOOD 46 mg/dL (7-18)
[2019-04-01 20:25] LABS: ABG BASE EXCESS -0.1 mmol/L (-2.0-3.0); ABG HCO3 21.6 mmol/L (21.0-28.0); ABG OXYGEN SATURATION 96.6 % (95.0-99.0); ABG PCO2 28 mmHg (32-45)
[2019-04-01 20:29] LABS: CHLORIDE 125 mmol/L (101-111); SODIUM SERUM > 162 mmol/L (136-145)
[2019-04-01 20:30] LABS: CREATINE KINASE, TOTAL 4124 U/L (21-232)
[2019-04-01] MEDS ORDERED: SODIUM CHLORIDE 0.9% 500ML 500 ML IV PRN (20:45)
[2019-04-01] MEDS: 1/2 NORMAL SALINE 1,000 ML IV STA ×2 (21:01→21:20)
[2019-04-01] MEDS: ZOSYN 3.375GM+NS 50ML 50 ML IV SCH (21:06)
[2019-04-01] MEDS ORDERED: POTASSIUM CHLORIDE 20 MEQ/100 ML BAG IV SCH (21:15)
[2019-04-01] MEDS ORDERED: NOREPINEPHRINE 4MG/NS 250ML 250 ML IV SCH (21:15)
[2019-04-01] MEDS ORDERED: VANCOMYCIN PROTOCOL PER PHARMACY IV SCH (23:45)
[2019-04-02] VITALS (52 sets, daily range): BP systolic 81–153; BP diastolic 36–78
[2019-04-02] MEDS ORDERED: FUROSEMIDE 10 MG/ML 2ML VIAL ONE (00:19)
[2019-04-02] MEDS ORDERED: ALBUMIN (HUMAN) 25% 100 ML IV ONE ×2 (00:19→00:30)
[2019-04-02 00:28] LABS: BASOPHILS % (AUTO) 0.1 % (0.0-5.0); EOSINOPHILS % (AUTO) 0.3 % (0.0-8.0); HEMATOCRIT 37.3 % (36-48); LYMPHOCYTES % (AUTO) 4.9 % (21.0-51.0); MEAN CORPUSCULAR HGB CONC 32.3 g/dL (32.0-36.0); MEAN CORPUSCULAR VOLUME 86.7 fL (79-99); MONOCYTES % (AUTO) 3.5 % (3.0-13.0); NEUTROPHILS % (AUTO) 91.2 % (40.0-77.0); NUCLEATED RED BLOOD CELLS 0.1 % (0.0-0.19); PLATELET COUNT (AUTO) 176 K/uL (130-400); WHITE BLOOD COUNT (AUTO) 14.6 K/uL (4.8-10.8)
[2019-04-02 00:40] LABS: INR 1.92 (0.85-1.15); PROTHROMBIN TIME 19.7 SEC (9.6-11.6)
[2019-04-02 00:57] LABS: APPEARANCE,URINE Clear (CLEAR); BILIRUBIN,URINE Negative (NEGATIVE); COLOR,URINE Yellow (YELLOW); GLUCOSE, URINE (UA) Negative (NEGATIVE); KETONES,URINE Negative (NEGATIVE); LEUKOCYTE ESTERASE ,URINE Negative (NEGATIVE); NITRATE,URINE Negative (NEGATIVE); OCCULT BLOOD,URINE Moderate (NEGATIVE); PROTEIN,URINE Negative (NEGATIVE); UROBILINOGEN,URINE 0.2 mg/dL (0.2-1.0)
[2019-04-02] MEDS ORDERED: FUROSEMIDE 10 MG/ML 2ML VIAL IV ONE (01:00)
[2019-04-02 01:02] LABS: ALBUMIN 1.7 g/dL (3.5-5.0); BILIRUBIN,DIRECT 0.2 mg/dL (0.0-0.3); BILIRUBIN,TOTAL 0.6 mg/dL (0.2-1.0); CREATININE 1.9 mg/dL (0.5-1.5); MAGNESIUM 2.3 mg/dL (1.80-2.40); PHOSPHORUS 4.3 mg/dL (2.5-4.9); TOTAL PROTEIN, SERUM 6.8 g/dL (6.0-8.3); TROPONIN I 0.15 ng/mL (0.00-0.06)
[2019-04-02 01:16] LABS: BACTERIA,URINE None Seen /HPF (None Seen); RBC,URINE 0-1 /HPF (0-1); SQUAMOUS EPITHELIAL CELL,UR Rare /HPF (0-2); WBC,URINE None Seen /HPF (0-1)
[2019-04-02] MEDS ORDERED: INSULIN HUMULIN R 100 UNIT/ML 3ML IV ONE (02:15)
[2019-04-02] MEDS: ZOSYN 3.375GM+NS 50ML 50 ML IV SCH ×3 (02:22→18:03)
[2019-04-02] MEDS: HYDROCORTISONE SOD SUCCINATE 100 MG/2 ML VIAL IV SCH ×3 (02:22→18:03)
[2019-04-02] MEDS ORDERED: INSULIN HUMULIN R 100 UNIT/ML 3ML IV SCH ×3 (04:15→14:15)
[2019-04-02 04:50] LABS: ABG BASE EXCESS -0.6 mmol/L (-2.0-3.0); ABG HCO3 21.7 mmol/L (21.0-28.0); ABG OXYGEN SATURATION 98.7 % (95.0-99.0); ABG PCO2 29 mmHg (32-45)
[2019-04-02 06:26] LABS: BASOPHILS % (AUTO) 0.3 % (0.0-5.0); HEMATOCRIT 30.3 % (36-48); LYMPHOCYTES % (AUTO) 6.4 % (21.0-51.0); MEAN CORPUSCULAR HEMOGLOBIN 28.2 pg (27.0-33.0); MEAN CORPUSCULAR HGB CONC 32.4 g/dL (32.0-36.0); MONOCYTES % (AUTO) 2.2 % (3.0-13.0); NEUTROPHILS % (AUTO) 91.1 % (40.0-77.0); PLATELET COUNT (AUTO) 155 K/uL (130-400); RED BLOOD CELL COUNT(AUTO) 3.48 MIL/uL (4.00-5.50); RED CELL DISTRIBUTION WIDTH 14.4 % (11.0-15.5); WHITE BLOOD COUNT (AUTO) 8.5 K/uL (4.8-10.8)
[2019-04-02] MEDS: ACETYLCYSTEINE 20% 200MG/ML 4ML VIAL IH SCH ×2 (06:31→11:15)
[2019-04-02] MEDS: ALBUTEROL SULFATE 0.083% 2.5 MG/3 ML INH IH SCH ×2 (06:31→11:15)
[2019-04-02] MEDS: SODIUM CHLORIDE IV SCH ×2 (06:36→13:37)
[2019-04-02] MEDS: POTASSIUM CHLORIDE IV SCH (06:36)
[2019-04-02] MEDS: [UNRECOGNIZED DRUG - OTHER] IV SCH (06:36)
[2019-04-02 06:43] LABS: INR 1.04 (0.85-1.15); PROTHROMBIN TIME 10.7 SEC (9.6-11.6)
[2019-04-02 06:44] LABS: APPEARANCE,URINE Turbid (CLEAR); BILIRUBIN,URINE Negative (NEGATIVE); COLOR,URINE Yellow (YELLOW); GLUCOSE, URINE (UA) Negative (NEGATIVE); KETONES,URINE Negative (NEGATIVE); LEUKOCYTE ESTERASE ,URINE Trace (NEGATIVE); NITRATE,URINE Negative (NEGATIVE); OCCULT BLOOD,URINE Large (NEGATIVE); PROTEIN,URINE POS 2+ mg/dL (NEGATIVE)
[2019-04-02 07:01] LABS: ALBUMIN 2.5 g/dL (3.5-5.0); BILIRUBIN,DIRECT 0.1 mg/dL (0.0-0.3); BILIRUBIN,TOTAL 0.4 mg/dL (0.2-1.0); CREATININE 1.9 mg/dL (0.5-1.5); MAGNESIUM 2.3 mg/dL (1.80-2.40); PHOSPHORUS 4.5 mg/dL (2.5-4.9); POTASSIUM 3.5 mmol/L (3.5-5.1); TOTAL PROTEIN, SERUM 7.3 g/dL (6.0-8.3); TROPONIN I 0.11 ng/mL (0.00-0.06)
[2019-04-02 07:04] LABS: BACTERIA,URINE Few /HPF (None Seen); RBC,URINE 0-1 /HPF (0-1); WBC,URINE 0-1 /HPF (0-1)
[2019-04-02 07:06] LABS: SQUAMOUS EPITHELIAL CELL,UR 0-2 /HPF (0-2); URIC ACID CRYSTALS,URINE Moderate /LPF (None Seen)
[2019-04-02] MEDS: 1/2 NORMAL SALINE 1,000 ML IV SCH ×8 (08:26→20:48)
[2019-04-02 08:44] LABS: ABG BASE EXCESS -0.2 mmol/L (-2.0-3.0); ABG HCO3 24.2 mmol/L (21.0-28.0); ABG OXYGEN SATURATION 98.5 % (95.0-99.0); ABG PCO2 39 mmHg (32-45)
[2019-04-02] MEDS: VANCOMYCIN 1GM+NS 250ML 250 ML IV SCH ×2 (09:00→20:46)
--- NOTE | 2019-04-02 10:27 | NUR ---
Emotional Support SW made f/u visit with family. Provided daughter with info for [employer] info for possible assistance. WIll continue to follow and assist as needed
[2019-04-02 12:19] LABS: BASOPHILS % (AUTO) 0.5 % (0.0-5.0); HEMATOCRIT 30.9 % (36-48); LYMPHOCYTES % (AUTO) 8.9 % (21.0-51.0); MEAN CORPUSCULAR HEMOGLOBIN 28.2 pg (27.0-33.0); MEAN CORPUSCULAR HGB CONC 32.1 g/dL (32.0-36.0); MONOCYTES % (AUTO) 5.2 % (3.0-13.0); NEUTROPHILS % (AUTO) 85.4 % (40.0-77.0); NUCLEATED RED BLOOD CELLS 0.1 % (0.0-0.19); PLATELET COUNT (AUTO) 166 K/uL (130-400); RED BLOOD CELL COUNT(AUTO) 3.51 MIL/uL (4.00-5.50); RED CELL DISTRIBUTION WIDTH 15.3 % (11.0-15.5)
[2019-04-02 12:36] LABS: APPEARANCE,URINE CLOUDY (CLEAR); BILIRUBIN,URINE SMALL (NEGATIVE); COLOR,URINE YELLOW (YELLOW); GLUCOSE, URINE (UA) NEGATIVE (NEGATIVE); KETONES,URINE 5 mg/dL (NEGATIVE); LEUKOCYTE ESTERASE ,URINE NEGATIVE (NEGATIVE); NITRATE,URINE NEGATIVE (NEGATIVE); OCCULT BLOOD,URINE LARGE (NEGATIVE); PROTEIN,URINE 100 mg/dL (NEGATIVE); UROBILINOGEN,URINE 0.2 mg/dL (0.2-1.0)
[2019-04-02 12:42] LABS: INR 1.02 (0.85-1.15); PARTIAL THROMBOPLASTIN TIME 28.5 SEC (26.3-35.5); PROTHROMBIN TIME 10.7 SEC (9.6-11.6)
[2019-04-02 12:56] LABS: WBC,URINE 0-1 /HPF (0-1)
[2019-04-02 12:57] LABS: BACTERIA,URINE Few /HPF (None Seen); URIC ACID CRYSTALS,URINE Moderate /LPF (None Seen)
[2019-04-02 13:03] LABS: AMYLASE 17 U/L (25-115); LIPASE 85 U/L (114-286); MYOGLOBIN 1550 ng/mL (10-92); PHOSPHORUS 6.7 mg/dL (2.5-4.9); TROPONIN I 0.08 ng/mL (0.00-0.06)
[2019-04-02 13:04] LABS: ALBUMIN 2.4 g/dL (3.5-5.0); BILIRUBIN,TOTAL 0.4 mg/dL (0.2-1.0); CREATININE 1.7 mg/dL (0.5-1.5); POTASSIUM 4.9 mmol/L (3.5-5.1); TOTAL PROTEIN, SERUM 7.5 g/dL (6.0-8.3)
--- NOTE | 2019-04-02 13:05 | NUR ---
DC PLAN PATIENT CHANGED TO ORGAN DONOR. Addendum: 04/02/19 at 1306 by SCOT SHELLEY RN CM Amended: Links added.
[2019-04-02 13:11] LABS: BILIRUBIN,DIRECT < 0.1 mg/dL (0.0-0.3)
[2019-04-02 13:12] LABS: CREATINE KINASE, TOTAL 3025 U/L (21-232)
[2019-04-02] MEDS ORDERED: PHARMACY COMMUNICATION MISC SCH (13:30)
[2019-04-02] MEDS: STERILE WATER IV SCH (13:37)
--- NOTE | 2019-04-02 14:35 | NUR ---
U/S GUIDED BIOPSY LIVER PROCEDURE PERFORMED AT THE BEDSIDE BY DR. HINOJOSA. PUNCTURE SITE MID EPIGASTRIC REGION. PATIENT TOLERATED PROCEDURE WELL. SPECIMEN X 3 COLLECTED AND SENT TO LAB. END OF PROCEDURE AT 1440. FLOSEAL GIVEN TO THE TRACT SITE BIOPSY NEEDLE REMOVED AND DRESSING APPLIED. NO BLEEDING NOTED. REPORT GIVEN TO TONIE REBOLLEDO. PATIENT CARE TURNED OVER TO TONIE REBOLLEDO. PT INTUBATED AND SEDATED PER ICU CARE.
[2019-04-02] MEDS: INSULIN REGULAR, HUMAN 3ML 100 UNIT in SODIUM CHLORIDE 0.9% 99 ML IV PRN ×2 (16:22)
[2019-04-02] MEDS: LEVOTHYROXINE IV SCH (16:23)
[2019-04-02] MEDS: SODIUM CHLORIDE 0.9% IV SCH (16:23)
[2019-04-02 18:32] LABS: BASOPHILS % (AUTO) 0.1 % (0.0-5.0); LYMPHOCYTES % (AUTO) 9.7 % (21.0-51.0); MEAN CORPUSCULAR HEMOGLOBIN 28.5 pg (27.0-33.0); MEAN CORPUSCULAR HGB CONC 31.9 g/dL (32.0-36.0); MEAN CORPUSCULAR VOLUME 89.5 fL (79-99); MONOCYTES % (AUTO) 6.1 % (3.0-13.0); NEUTROPHILS % (AUTO) 84.1 % (40.0-77.0); PLATELET COUNT (AUTO) 149 K/uL (130-400); RED BLOOD CELL COUNT(AUTO) 3.13 MIL/uL (4.00-5.50); WHITE BLOOD COUNT (AUTO) 9.5 K/uL (4.8-10.8)
[2019-04-02 18:39] LABS: APPEARANCE,URINE CLOUDY (CLEAR); BILIRUBIN,URINE SMALL (NEGATIVE); COLOR,URINE YELLOW (YELLOW); GLUCOSE, URINE (UA) NEGATIVE (NEGATIVE); KETONES,URINE NEGATIVE (NEGATIVE); LEUKOCYTE ESTERASE ,URINE NEGATIVE (NEGATIVE); NITRATE,URINE NEGATIVE (NEGATIVE); OCCULT BLOOD,URINE LARGE (NEGATIVE); PH,URINE 5.5 (5.0-8.0); PROTEIN,URINE 100 mg/dL (NEGATIVE); UROBILINOGEN,URINE 0.2 mg/dL (0.2-1.0)
[2019-04-02 18:53] LABS: AMORPHOUS SEDIMENT,UR Few /LPF (None Seen)
[2019-04-02 18:54] LABS: FINE GRANULAR CASTS,URINE 0-2 /LPF (None Seen)
[2019-04-02 18:55] LABS: MUCUS,URINE Few LPF (None Seen)
[2019-04-02 18:57] LABS: URIC ACID CRYSTALS,URINE Moderate /LPF (None Seen)
[2019-04-02 18:58] LABS: BACTERIA,URINE Many /HPF (None Seen)
[2019-04-02 19:13] LABS: ALBUMIN 2.1 g/dL (3.5-5.0); BILIRUBIN,DIRECT 0.1 mg/dL (0.0-0.3); BILIRUBIN,TOTAL 0.3 mg/dL (0.2-1.0); CREATININE 1.6 mg/dL (0.5-1.5); MAGNESIUM 2.2 mg/dL (1.80-2.40); PHOSPHORUS 6.5 mg/dL (2.5-4.9); POTASSIUM 4.5 mmol/L (3.5-5.1); TOTAL PROTEIN, SERUM 6.9 g/dL (6.0-8.3); TROPONIN I 0.05 ng/mL (0.00-0.06)
[2019-04-02] MEDS ORDERED: 1/2 NORMAL SALINE 1,000 ML IV ONE (19:29)
[2019-04-02 21:10] LABS: INR 1.06 (0.85-1.15); PROTHROMBIN TIME 10.9 SEC (9.6-11.6)
[2019-04-02 22:44] LABS: ABG BASE EXCESS -4.9 mmol/L (-2.0-3.0); ABG HCO3 21.4 mmol/L (21.0-28.0); ABG OXYGEN SATURATION 98.8 % (95.0-99.0); ABG PCO2 44 mmHg (32-45)
[2019-04-03] VITALS (29 sets, daily range): BP systolic 113–154; BP diastolic 48–67
[2019-04-03 00:30] LABS: APPEARANCE,URINE Turbid (CLEAR); BILIRUBIN,URINE Negative (NEGATIVE); COLOR,URINE Yellow (YELLOW); GLUCOSE, URINE (UA) Negative (NEGATIVE); KETONES,URINE Negative (NEGATIVE); LEUKOCYTE ESTERASE ,URINE Negative (NEGATIVE); NITRATE,URINE Negative (NEGATIVE); OCCULT BLOOD,URINE Large (NEGATIVE); PROTEIN,URINE POS 2+ mg/dL (NEGATIVE)
[2019-04-03 00:31] LABS: BASOPHILS % (AUTO) 0.1 % (0.0-5.0); HEMATOCRIT 27.8 % (36-48); LYMPHOCYTES % (AUTO) 9.8 % (21.0-51.0); MEAN CORPUSCULAR HEMOGLOBIN 27.7 pg (27.0-33.0); MEAN CORPUSCULAR HGB CONC 31.5 g/dL (32.0-36.0); MONOCYTES % (AUTO) 3.8 % (3.0-13.0); NEUTROPHILS % (AUTO) 86.3 % (40.0-77.0); NUCLEATED RED BLOOD CELLS 0.1 % (0.0-0.19); PLATELET COUNT (AUTO) 148 K/uL (130-400); RED BLOOD CELL COUNT(AUTO) 3.16 MIL/uL (4.00-5.50); RED CELL DISTRIBUTION WIDTH 14.8 % (11.0-15.5); WHITE BLOOD COUNT (AUTO) 10.6 K/uL (4.8-10.8)
[2019-04-03 00:51] LABS: AMORPHOUS SEDIMENT,UR Moderate /LPF (None Seen); BACTERIA,URINE None Seen /HPF (None Seen); MUCUS,URINE Rare LPF (None Seen); SQUAMOUS EPITHELIAL CELL,UR Rare /HPF (0-2); WBC,URINE None Seen /HPF (0-1)
[2019-04-03 00:59] LABS: INR 1.03 (0.85-1.15); PARTIAL THROMBOPLASTIN TIME 28.3 SEC (26.3-35.5); PROTHROMBIN TIME 10.6 SEC (9.6-11.6)
[2019-04-03 01:18] LABS: ALANINE AMINOTRANSFERASE 75 U/L (12-78); ALBUMIN 2.1 g/dL (3.5-5.0); AMYLASE 17 U/L (25-115); ASPARTATE AMINOTRANSFERASE 91 U/L (10-37); BILIRUBIN,DIRECT 0.1 mg/dL (0.0-0.3); BILIRUBIN,TOTAL 0.3 mg/dL (0.2-1.0); CARBON DIOXIDE 26 mmol/L (21-32); CREATININE 1.4 mg/dL (0.5-1.5); GLOMERULAR FILTR. RATE CALC 42 mL/min (>60); GLUCOSE,RANDOM 229 mg/dL (70-105); LIPASE 88 U/L (114-286); POTASSIUM 3.8 mmol/L (3.5-5.1); SODIUM SERUM 159 mmol/L (136-145); TOTAL PROTEIN, SERUM 6.8 g/dL (6.0-8.3); TROPONIN I < 0.04 ng/mL (0.00-0.06); UREA NITROGEN, BLOOD 37 mg/dL (7-18)
[2019-04-03] MEDS ORDERED: 1/2 NORMAL SALINE 1,000 ML IV STA (01:37)
[2019-04-03] MEDS ORDERED: 1/2 NORMAL SALINE 1,000 ML IV ONE (01:41)
[2019-04-03] MEDS: SODIUM CHLORIDE IV SCH (01:43)
[2019-04-03] MEDS: STERILE WATER IV SCH (01:43)
[2019-04-03 01:48] LABS: CREATINE KINASE, TOTAL 1658 U/L (21-232)
[2019-04-03 01:49] LABS: CHLORIDE 123 mmol/L (101-111)
[2019-04-03 01:51] LABS: MYOGLOBIN 909 ng/mL (10-92)
[2019-04-03] MEDS: HYDROCORTISONE SOD SUCCINATE 100 MG/2 ML VIAL IV SCH (01:56)
[2019-04-03] MEDS: ZOSYN 3.375GM+NS 50ML 50 ML IV SCH (01:56)
[2019-04-03] MEDS ORDERED: SODIUM CHLORIDE 0.9% 100 ML IV ONE (03:28)
[2019-04-03] MEDS ORDERED: INSULIN HUMULIN R 100 UNIT/ML 3ML ONE (03:28)
[2019-04-03] MEDS: INSULIN REGULAR, HUMAN 3ML 100 UNIT in SODIUM CHLORIDE 0.9% 99 ML IV PRN ×2 (03:36)
--- NOTE | 2019-04-03 06:16 | NUR ---
Patient on vasopressin at beginning of shift but was transitioned to levofed at oooo. Blood glucose was elevated, so insulin was titrated to keep below 180. Urine output as charted and VSS. Family at bedside at 0615.
[2019-04-03] MEDS ORDERED: ROCURONIUM 10MG/1ML SYR 10 MG/ML ML ONE (07:40)
[2019-04-03] MEDS ORDERED: FENTANYL CITRATE PF 50 MCG/1 ML 2ML VIAL ONE (08:01)
[2019-04-03] MEDS ORDERED: VASOPRESSIN 20 UNITS/ML 1ML VIAL ONE (08:15)
== END 2019-04-03 13:10 | disposition expired | DRG 983 ==
LOC: 2CH 14:35 → UNDOADMIN 14:35 → 2CV 04-02 10:16 → 2CH 04-03 10:39 → 2CV 04-03 10:39 → UNDODISIN 04-03 14:00 → 2CV 04-03 20:00 → EDHIP 04-03 20:00 → UNDODISIN 04-03 23:59
PROVIDERS: ADMIT Transplant Surgery; ATTEND Transplant Surgery
PROC: 0WCQ8ZZ Extirpation of Matter from Respiratory Tract, Via Natural or Artificial Opening Endoscopic (ICD-10-PCS; 2019-04-01)
PROC: 02HV33Z Insertion of Infusion Device into Superior Vena Cava, Percutaneous Approach (ICD-10-PCS; 2019-04-01)
PROC: B548ZZA Ultrasonography of Superior Vena Cava, Guidance (ICD-10-PCS; 2019-04-01)
PROC: 04HY32Z Insertion of Monitoring Device into Lower Artery, Percutaneous Approach (ICD-10-PCS; 2019-04-01)
PROC: 0B9D8ZX Drainage of Right Middle Lung Lobe, Via Natural or Artificial Opening Endoscopic, Diagnostic (ICD-10-PCS; 2019-04-01)
PROC: 0B9G8ZX Drainage of Left Upper Lung Lobe, Via Natural or Artificial Opening Endoscopic, Diagnostic (ICD-10-PCS; 2019-04-01)
PROC: 0FB13ZX Excision of Right Lobe Liver, Percutaneous Approach, Diagnostic (ICD-10-PCS; principal; 2019-04-02)
PROC: 30233K1 Transfusion of Nonautologous Frozen Plasma into Peripheral Vein, Percutaneous Approach (ICD-10-PCS; 2019-04-02)
PROC: 5A1945Z Respiratory Ventilation, 24-96 Consecutive Hours (ICD-10-PCS; 2019-04-02)
PROC: 0TB13ZX Excision of Left Kidney, Percutaneous Approach, Diagnostic (ICD-10-PCS; 2019-04-03)
PROC: 0TB03ZX Excision of Right Kidney, Percutaneous Approach, Diagnostic (ICD-10-PCS; 2019-04-03)
DX: I11.0 Hypertensive heart disease with heart failure (principal); Z52.89 Donor of other specified organs or tissues; I50.33 Acute on chronic diastolic (congestive) heart failure; J45.909 Unspecified asthma, uncomplicated; E11.9 Type 2 diabetes mellitus without complications; E66.01 Morbid (severe) obesity due to excess calories; Z68.38 Body mass index [BMI] 38.0-38.9, adult
CPT/HCPCS: 36415; 36430; 36556; 36620; 47000; 71045; 80053; 81001; 82150; 82247; 82248; 82435; 82550; 82803; 82947; 82948; 82977; 83036; 83605; 83690; 83735; 83874; 84100; 84132; 84295; 84484; 85018; 85025; 85027; 85610; 85730; 86156; 86850; 86900; 86901; 86922; 86927; 87040; 87088; 87205; 94003; 94640; A4357; C1751; G0378; J1265; J1720; J1815; J1940; J2543; J3010; J3370; J3480; J3490; J7040; J7131; J7608; P9017; P9046